=== PATIENT | female | born 1970 | race Caucasian/White ===

== ENCOUNTER → 2017-11-03 | Outpatient (CLI) | payer OTHER ==
[~2017-11-03] MED LIST: ACET500; ALBU90OI INH; ALPR.5 PO; AMIT25 PO; AMOX500 PO; AZIT500 PO; Adipex-P37.5 M1 PO; BISA10S PR; BISA5EC PO; BUPR100 PO; BUSP10 PO; BUTASPCAF PO; CARI350 PO; CEPH500 PO; CIPR500 PO; CLIN300 PO; CLOT1TC TOP; CODGUAEL PO; CYCL10 PO; Crutch1 EACH MISC; DIAZ5; DOCU100 PO; FAMO20 PO; FURO40; FURO40 PO; HYDACE10B PO; HYDACE5; HYDACE5 PO; HYDACE7.5 PO; HYDR1TAB94 PO; IBUP600; IBUP800 PO; Inderal60 MG PO; LOSA25 PO; METO25 PO; NAPR500 PO; NAPR550; NAPR550 PO; NEOCOLOTSU OT; NYSTRI30T TOP; ONDA4 PO; ONDA4ODT MM; OXYACE5T PO; PARO10; PENVK500 PO; PERM5TC TOP; POLY17UD PO; PRED5 PO; PROC10 PO; PROCODE120 PO; PROM25 PO; Prilosec20 MG PO; RANI150 PO; RXNAPNA550 PO; RXPROM25 PO; RXTRAM50 PO; SUCR1 PO; TRAM50 PO; Ultram50 MG PO
[2017-11-03 16:56] LABS: BASOPHILS ABSOLUTE AUTO 0.08 K/mm3 (0.00-0.23); BASOPHILS PERCENT AUTO 1 % (0-2); EOSINOPHILS ABSOLUTE AUTO 0.45 K/mm3 (0.00-0.68); EOSINOPHILS PERCENT AUTO 4 % (0-6); Hemoglobin 13.9 g/dL (11.5-16.0); IMMATURE GRAN ABSOLUTE AUTO 0.03 K/mm3 (0.00-0.10); IMMATURE GRAN PERCENT AUTO 0 % (0-1); LYMPHOCYTES ABSOLUTE AUTO 3.19 K/mm3 (0.84-5.20); LYMPHOCYTES PERCENT AUTO 31 % (21-46); MONOCYTES ABSOLUTE AUTO 0.61 K/mm3 (0.16-1.47); MONOCYTES PERCENT AUTO 6 % (4-13); Mean Corpuscular HGB Conc 33.1 g/dL (31.5-36.5); Mean Corpuscular Volume 88 fL (80-100); Mean Platelet Volume 11.1 fL (9.1-12.4); NEUTROPHILS ABSOLUTE AUTO 5.82 K/mm3 (1.96-9.15); NEUTROPHILS PERCENT AUTO 57 % (41-73); Platelet Count 323 K/mm3 (150-400); RDW Coefficient Variation 13.1 % (11.7-14.2); Red Blood Cell Count 4.79 M/mm3 (3.80-5.20); White Blood Cell Count 10.18 K/mm3 (4.00-11.30)
[2017-11-03 17:16] LABS: Anion Gap 9 mmol/L (6-16); Blood Urea Nitrogen 14 mg/dL (8-24); Bun/Creatinine Ratio 17.1 (12.0-20.0); CO2, Blood 29 mmol/L (21-32); Calcium, Blood 9.3 mg/dL (8.5-10.1); Chloride, Blood 104 mmol/L (98-108); Creatinine, Blood 0.82 mg/dL (0.40-1.00); Glomerular Filtration Rate >60 (60-); Glucose, Blood 126 mg/dL (70-99); Potassium, Blood 3.6 mmol/L (3.5-5.5); Sodium, Blood 142 mmol/L (136-145); Thyroid Stimulating Hormone 3.246 uIU/mL (0.360-4.800)
[2017-11-03 17:17] LABS: Troponin I <0.017 ng/mL (0.000-0.040)
== END ==
LOC: LAB EV 16:49
PROVIDERS: Family Medicine
DX: R00.2 Palpitations (principal)
CPT/HCPCS: 80048; 84443; 84484; 85025

== ENCOUNTER → 2018-01-27 | Outpatient (CLI) | payer OTHER | END | disposition home or self-care (01) | LOC: LAB EV 09:32 → LAB SHORT 09:32 | DX: J02.9 Acute pharyngitis, unspecified (principal) | CPT/HCPCS: 87070 ==

== ENCOUNTER 2018-12-15 12:28 | Emergency (ER) | payer OTHER ==
[~2018-12-15] VITALS: Ht 170.2 cm; Wt 123.8 kg
[~2018-12-15 12:28] MED LIST changes: -Protonix40 MG PO
[2018-12-15] MEDS ORDERED: Protonix40 MG PO (15:56)
== END 2018-12-15 16:10 | disposition home or self-care (01) ==
LOC: ER 12:28
DX: K29.70 Gastritis, unspecified, without bleeding (principal); K29.80 Duodenitis without bleeding; K27.9 Peptic ulcer, site unspecified, unspecified as acute or chronic, without hemorrhage or perforation; Z79.899 Other long term (current) drug therapy; I10 Essential (primary) hypertension
CPT/HCPCS: 36415; 74176; 86850; 86900; 86901; 96374; 99284-25; J0780

== ENCOUNTER → 2018-12-15 | Outpatient (CLI) | payer OTHER ==
[~2018-12-15] MED LIST changes: +Protonix40 MG PO
[2018-12-15 12:19] LABS: BASOPHILS ABSOLUTE AUTO 0.07 K/mm3 (0.00-0.23); BASOPHILS PERCENT AUTO 1 % (0-2); EOSINOPHILS ABSOLUTE AUTO 0.28 K/mm3 (0.00-0.68); EOSINOPHILS PERCENT AUTO 3 % (0-6); Hemoglobin 13.2 g/dL (11.5-16.0); IMMATURE GRAN ABSOLUTE AUTO 0.01 K/mm3 (0.00-0.10); IMMATURE GRAN PERCENT AUTO 0 % (0-1); LYMPHOCYTES ABSOLUTE AUTO 3.04 K/mm3 (0.84-5.20); LYMPHOCYTES PERCENT AUTO 36 % (21-46); MONOCYTES ABSOLUTE AUTO 0.53 K/mm3 (0.16-1.47); MONOCYTES PERCENT AUTO 6 % (4-13); Mean Corpuscular HGB 28.4 pg (26.0-34.0); Mean Corpuscular Volume 86 fL (80-100); Mean Platelet Volume 11.1 fL (9.1-12.4); NEUTROPHILS ABSOLUTE AUTO 4.64 K/mm3 (1.96-9.15); NEUTROPHILS PERCENT AUTO 54 % (41-73); Platelet Count 298 K/mm3 (150-400); RDW Coefficient Variation 13.1 % (11.7-14.2); RDW Standard Deviation 40.5 fL (35.1-46.3); Red Blood Cell Count 4.65 M/mm3 (3.80-5.20); White Blood Cell Count 8.57 K/mm3 (4.00-11.30)
[2018-12-15 12:29] LABS: Albumin, Blood 4.3 g/dL (3.4-5.0); Albumin/Globulin Ratio 1.3 (0.8-1.8); Bilirubin, Total 0.3 mg/dL (0.1-1.0); Bun/Creatinine Ratio 20.4 (12.0-20.0); Calcium, Blood 9.3 mg/dL (8.5-10.1); Creatinine, Blood 1.03 mg/dL (0.40-1.00); Globulin, Blood 3.3 g/dL (2.2-4.0); Potassium, Blood 4.1 mmol/L (3.5-5.5); Total Protein, Blood 7.6 g/dL (6.4-8.2)
[2018-12-15 13:08] LABS: International Normalized Ratio 0.93; Prothrombin Time Results 9.7 Sec (9.7-11.5)
== END | disposition home or self-care (01) ==
LOC: LAB SHORT 12:10 → LAB EV 12:10
PROVIDERS: General Practice
DX: K62.5 Hemorrhage of anus and rectum (principal); R10.9 Unspecified abdominal pain
CPT/HCPCS: 80053; 83690; 85025; 85610; 85730

== ENCOUNTER → 2019-07-25 | Outpatient (CLI) | payer OTHER ==
[~2019-07-25] MED LIST changes: -Inderal60 MG PO; +LOSARTAN POTAS100 MG PO; +OMEP20ER; +OMEPRAZOLE MAGN20 M1 PO; +Oxybutynin Chlo15 MG; +PRAM.125; +PRAM.125 PO; +PROBIOTIC1 EAC4 PO; +PROM25; +PROP120ER PO; +Protonix40 MG PO; +TRAM50; +TRAZ50; +TRAZ50 PO
== END | disposition home or self-care (01) ==
LOC: LAB SHORT 08:11 → OLS 08:11 → LAB FUT 07-10 09:30
DX: R11.2 Nausea with vomiting, unspecified (principal); R10.13 Epigastric pain
CPT/HCPCS: 87338

== ENCOUNTER 2019-07-30 07:38 | Day surgery (SDC) | payer OTHER ==
[~2019-07-30] VITALS: Ht 170.2 cm; Wt 119.5 kg
[~2019-07-30 07:38] MED LIST changes: -LOSARTAN POTAS100 MG PO; -OMEPRAZOLE MAGN20 M1 PO; -PROBIOTIC1 EAC4 PO; -TRAZ50 PO
== END 2019-07-30 10:14 | disposition home or self-care (01) ==
LOC: ORSCSDS 07:38
PROVIDERS: Internal Medicine Gastroenterology
PROC: 0DJD8ZZ Inspection of Lower Intestinal Tract, Via Natural or Artificial Opening Endoscopic (ICD-10-PCS; principal; 2019-07-30 09:00)
PROC: 0DB68ZX Excision of Stomach, Via Natural or Artificial Opening Endoscopic, Diagnostic (ICD-10-PCS; principal; 2019-07-30 09:00)
PROC: 0DB58ZX Excision of Esophagus, Via Natural or Artificial Opening Endoscopic, Diagnostic (ICD-10-PCS; principal; 2019-07-30 09:00)
DX: K21.9 Gastro-esophageal reflux disease without esophagitis (principal); R11.2 Nausea with vomiting, unspecified; R10.13 Epigastric pain; K62.5 Hemorrhage of anus and rectum; K64.8 Other hemorrhoids; K29.70 Gastritis, unspecified, without bleeding; K29.80 Duodenitis without bleeding
CPT/HCPCS: 87081; 88305; J0330; J0461; J2405; J2704; J7120

== ENCOUNTER 2019-08-30 14:45 | Emergency (ER) | payer OTHER ==
[~2019-08-30] VITALS: Ht 170.2 cm; Wt 122.0 kg
[2019-08-30 15:21] LABS: BASOPHILS ABSOLUTE AUTO 0.05 K/mm3 (0.00-0.23); BASOPHILS PERCENT AUTO 1 % (0-2); EOSINOPHILS PERCENT AUTO 3 % (0-6); Hematocrit 37.3 % (33.0-51.0); Hemoglobin 11.9 g/dL (11.5-16.0); IMMATURE GRAN ABSOLUTE AUTO 0.01 K/mm3 (0.00-0.10); IMMATURE GRAN PERCENT AUTO 0 % (0-1); LYMPHOCYTES ABSOLUTE AUTO 2.58 K/mm3 (0.84-5.20); LYMPHOCYTES PERCENT AUTO 39 % (21-46); MONOCYTES PERCENT AUTO 11 % (4-13); Mean Corpuscular HGB 26.8 pg (26.0-34.0); Mean Corpuscular HGB Conc 31.9 g/dL (31.5-36.5); Mean Corpuscular Volume 84 fL (80-100); Mean Platelet Volume 10.9 fL (9.1-12.4); NEUTROPHILS PERCENT AUTO 46 % (41-73); Platelet Count 258 K/mm3 (150-400); RDW Coefficient Variation 12.3 % (11.7-14.2); RDW Standard Deviation 36.9 fL (35.1-46.3); Red Blood Cell Count 4.44 M/mm3 (3.80-5.20); White Blood Cell Count 6.54 K/mm3 (4.00-11.30)
[2019-08-30 15:44] LABS: Alanine Aminotransfer (ALT/SGP 62 U/L (12-78); Albumin, Blood 3.7 g/dL (3.4-5.0); Albumin/Globulin Ratio 1.2 (0.8-1.8); Alk Phos 120 U/L (50-136); Anion Gap 6 mmol/L (6-16); Aspartate Aminotrans (AST/SGOT 29 U/L (12-37); Bilirubin, Total 0.4 mg/dL (0.1-1.0); Blood Urea Nitrogen 10 mg/dL (8-24); Bun/Creatinine Ratio 26.2 (12.0-20.0); CO2, Blood 27 mmol/L (21-32); Calcium, Blood 9.7 mg/dL (8.5-10.1); Chloride, Blood 107 mmol/L (98-108); Creatinine, Blood 0.38 mg/dL (0.40-1.00); Globulin, Blood 3.1 g/dL (2.2-4.0); Glomerular Filtration Rate >60 (60-); Glucose, Blood 109 mg/dL (70-99); Potassium, Blood 3.5 mmol/L (3.5-5.5); Sodium, Blood 140 mmol/L (136-145); Total Protein, Blood 6.8 g/dL (6.4-8.2); Troponin I <0.015 ng/mL (0.000-0.040)
[2019-08-30] MEDS ORDERED: LOSARTAN POTAS100 MG PO (16:28)
[2019-08-30 16:29] LABS: Source, Urine Clean Catch
[2019-08-30] MEDS ORDERED: TRAZ50 PO (16:29)
[2019-08-30] MEDS ORDERED: OMEPRAZOLE MAGN20 M1 PO (16:30)
[2019-08-30] MEDS ORDERED: PROBIOTIC1 EAC4 PO (16:31)
[2019-08-30] MEDS ORDERED: HYDR1TAB94 PO (16:31)
[2019-08-30 16:40] LABS: Bilirubin, Urine Neg (Neg); Blood, Urine Neg (Neg); Glucose Qualitative, Urine Neg (Neg); Ketones, Urine Neg (Neg); Leukocyte Esterase, Urine Neg (Neg); Nitrite, Urine Neg (Neg); Protein, Urine Neg (Neg); Urobilinogen, Urine NORM (Normal)
[2019-08-30 16:48] LABS: Appearance, Urine Clear (Clear); Color, Urine Yellow (P-Yellow)
== END 2019-08-30 19:51 | disposition home or self-care (01) ==
LOC: ER 14:45
PROVIDERS: Emergency Medicine
DX: R07.9 Chest pain, unspecified (principal); R00.0 Tachycardia, unspecified; I10 Essential (primary) hypertension; Z79.899 Other long term (current) drug therapy; Z87.891 Personal history of nicotine dependence; R01.1 Cardiac murmur, unspecified; R06.02 Shortness of breath; R60.0 Localized edema
CPT/HCPCS: 71046; 71260; 80053; 81003; 81025; 83880; 84484; 85025; 85379; 93005; 93010; 99285-25; Q9967

== ENCOUNTER → 2019-09-13 | Outpatient (CLI) | payer OTHER ==
[~2019-09-13] MED LIST changes: +LOSARTAN POTAS100 MG PO; +OMEPRAZOLE MAGN20 M1 PO; +PROBIOTIC1 EAC4 PO; +TRAZ50 PO
[2019-09-13 14:01] LABS: Candida species (DNA Probe) Negative (NEGATIVE); G. vaginalis (DNA Probe) Positive (NEGATIVE); T. vaginalis (DNA Probe) Negative (NEGATIVE)
== END ==
LOC: LAB SHORT 10:38 → LAB UCHC 10:38
PROVIDERS: Registered Nurse Community Health
DX: N89.8 Other specified noninflammatory disorders of vagina (principal)
CPT/HCPCS: 87480; 87510; 87660

== ENCOUNTER → 2019-10-17 | Outpatient (CLI) | payer OTHER | LOC: LAB 12:27 → LAB SHORT 12:27 | DX: B37.2 Candidiasis of skin and nail (principal) | CPT/HCPCS: 87070; 87205 ==

== ENCOUNTER 2023-03-16 11:07 | Emergency (ER) | payer OTHER ==
[~2023-03-16] VITALS: Ht 170.2 cm; Wt 132.0 kg
[2023-03-16 11:59] LABS: BASOPHILS ABSOLUTE AUTO 0.12 K/mm3 (0.00-0.23); BASOPHILS PERCENT AUTO 1 % (0-2); EOSINOPHILS ABSOLUTE AUTO 0.34 K/mm3 (0.00-0.68); EOSINOPHILS PERCENT AUTO 3 % (0-6); Hematocrit 44.4 % (33.0-51.0); Hemoglobin 15.3 g/dL (11.5-16.0); IMMATURE GRAN ABSOLUTE AUTO 0.03 K/mm3 (0.00-0.10); IMMATURE GRAN PERCENT AUTO 0 % (0-1); LYMPHOCYTES ABSOLUTE AUTO 4.24 K/mm3 (0.84-5.20); LYMPHOCYTES PERCENT AUTO 41 % (21-46); MONOCYTES ABSOLUTE AUTO 0.63 K/mm3 (0.16-1.47); MONOCYTES PERCENT AUTO 6 % (4-13); Mean Corpuscular HGB 28.5 pg (26.0-34.0); Mean Corpuscular HGB Conc 34.5 g/dL (31.5-36.5); Mean Corpuscular Volume 83 fL (80-100); Mean Platelet Volume 11.1 fL (9.1-12.4); NEUTROPHILS ABSOLUTE AUTO 5.05 K/mm3 (1.96-9.15); NEUTROPHILS PERCENT AUTO 48 % (41-73); Platelet Count 378 K/mm3 (150-400); Red Blood Cell Count 5.36 M/mm3 (3.80-5.20); White Blood Cell Count 10.41 K/mm3 (4.00-11.30)
[2023-03-16] MEDS ORDERED: Adipex-P37.5 M1 PO (15:04)
[2023-03-16] MEDS ORDERED: ZANAFLEX413 PO (15:04)
[2023-03-16] MEDS ORDERED: VENL150ER PO (15:05)
[2023-03-16] MEDS ORDERED: LOSA50 PO (15:06)
[2023-03-16 15:25] LABS: Albumin, Blood 4.3 g/dL (3.4-5.0); Albumin/Globulin Ratio 1.1 (0.8-1.8); Bilirubin, Total 0.3 mg/dL (0.1-1.0); Calcium, Blood 9.9 mg/dL (8.5-10.1); Creatinine, Blood 0.75 mg/dL (0.40-1.00); Globulin, Blood 3.9 g/dL (2.2-4.0); Potassium, Blood 4.2 mmol/L (3.5-5.5); Total Protein, Blood 8.2 g/dL (6.4-8.2)
[2023-03-16] MEDS ORDERED: Robaxin750 MG PO (16:20)
[2023-03-16] MEDS ORDERED: METO10 PO (16:20)
[2023-03-16 16:40] VITALS: BP 200/100
== END 2023-03-16 16:41 | disposition home or self-care (01) ==
LOC: ER 11:07
PROVIDERS: Physician Assistant
DX: G44.209 Tension-type headache, unspecified, not intractable (principal); I10 Essential (primary) hypertension; M54.2 Cervicalgia; Z79.899 Other long term (current) drug therapy; Z87.891 Personal history of nicotine dependence
CPT/HCPCS: 80053; 85025; 93005; 93010; 96361; 96374; 96375; 99283-25; A9270; J1885; J2765; J7030

== ENCOUNTER 2023-03-28 14:25 | Inpatient (IN) | payer OTHER ==
[~2023-03-28] VITALS: Ht 167.6 cm; Wt 134.2 kg
[~2023-03-28 14:25] MED LIST changes: +LOSA50 PO; +METO10 PO; +Robaxin750 MG PO; +VENL150ER PO; +ZANAFLEX413 PO
[2023-03-28 15:39] LABS: BASOPHILS ABSOLUTE AUTO 0.08 K/mm3 (0.00-0.23); BASOPHILS PERCENT AUTO 1 % (0-2); EOSINOPHILS ABSOLUTE AUTO 0.32 K/mm3 (0.00-0.68); EOSINOPHILS PERCENT AUTO 3 % (0-6); Hemoglobin 15.4 g/dL (11.5-16.0); Mean Corpuscular HGB 28.5 pg (26.0-34.0); Mean Corpuscular HGB Conc 34.2 g/dL (31.5-36.5); Mean Corpuscular Volume 83 fL (80-100); Platelet Count 377 K/mm3 (150-400); RDW Coefficient Variation 12.9 % (11.7-14.2); RDW Standard Deviation 38.9 fL (35.1-46.3); Red Blood Cell Count 5.41 M/mm3 (3.80-5.20); White Blood Cell Count 10.41 K/mm3 (4.00-11.30)
[2023-03-28 15:43] LABS: IMMATURE GRAN ABSOLUTE AUTO 0.02 K/mm3 (0.00-0.10); IMMATURE GRAN PERCENT AUTO 0 % (0-1); LYMPHOCYTES ABSOLUTE AUTO 4.57 K/mm3 (0.84-5.20); LYMPHOCYTES PERCENT AUTO 44 % (21-46); MONOCYTES ABSOLUTE AUTO 0.75 K/mm3 (0.16-1.47); MONOCYTES PERCENT AUTO 7 % (4-13); NEUTROPHILS ABSOLUTE AUTO 4.67 K/mm3 (1.96-9.15); NEUTROPHILS PERCENT AUTO 45 % (41-73)
[2023-03-28 16:08] LABS: Albumin, Blood 4.3 g/dL (3.4-5.0); Albumin/Globulin Ratio 1.1 (0.8-1.8); Bilirubin, Total 0.3 mg/dL (0.1-1.0); Bun/Creatinine Ratio 26.2 (12.0-20.0); Calcium, Blood 10.1 mg/dL (8.5-10.1); Creatinine, Blood 0.69 mg/dL (0.40-1.00); Potassium, Blood 3.8 mmol/L (3.5-5.5); Total Protein, Blood 8.3 g/dL (6.4-8.2)
[2023-03-28 19:38] LABS: Source, Urine Clean Catch
[2023-03-28 19:41] LABS: Appearance, Urine Clear (Clear); Bilirubin, Urine Neg (Neg); Blood, Urine Neg (Neg); Color, Urine Yellow (P-Yellow); Glucose Qualitative, Urine Neg (Neg); Ketones, Urine Neg (Neg); Leukocyte Esterase, Urine Neg (Neg); Nitrite, Urine Neg (Neg); Protein, Urine 1+ (Neg); Urobilinogen, Urine NORM (Normal)
[2023-03-28 23:21] VITALS: BP 203/115
[2023-03-28 23:36] LABS: Glucose, Body Fluid 81 mg/dL; Protein, Body Fluid 0.1 g/dL
[2023-03-28 23:52] LABS: RBC Count, CSF 0 /mm3 (0-0)
[2023-03-28 23:58] LABS: Automated CSF WBC Count 0.001 K/mm3 (0-5)
[2023-03-29] VITALS (7 sets, daily range): BP systolic 131–221; BP diastolic 84–117
[2023-03-29 00:09] LABS: WBC Count, CSF 3 /mm3 (0-5)
[2023-03-29 00:10] LABS: RBC Count, CSF 14 /mm3 (0-0)
[2023-03-29 00:11] LABS: Appearance, CSF Clear (Clear); Color, CSF No Color (No Color)
--- NOTE | 2023-03-29 00:28 | NUR ---
ARRIVAL TO [facility] / SAFETY & EDUCATION PT ARRIVED TO [facility] AT APPROXIMATELY 2315. PT TRANSFERED FROM [facility] TO [facility] BED WITH SBA. PT AMBUALTED TO BATHROOM ONCE ARRIVING TO ROOM. PT A&Ox4, COMMUNICATES NEEDS APPRPOPRIATELY, ORIENTED TO CALL LIGHT/UNIT. BP ELEVATED, PERMISSIVE HTN PER PHYSICIAN, MANAGING PER EMAR. SINUS 80's, DENIES CP/PRESSURE. SpO2> 92% RA, DENIES SOB. PT WITH C/O OF HEADACHE, MEDICATED PER EMAR, APPLIED COOL WASH CLOTHS. BED IN LOWEST POSITION, CALL LIGHT IN REACH. PT & FAMILY EDUCATED RE: IGNITION SOURCES AND RISK OF INJURY WHILE OXYGEN IS IN USE. PT DENIES SMOKING AND PT & FAMILY VERBALIZE UNDERSTANDING.
[2023-03-29 00:48] LABS: Cryptococcus Neoformans/Gattii Not Detected (NOT DETECT); Enterovirus Not Detected (NOT DETECT); Escherichia Coli K1 Not Detected (NOT DETECT); Haemophilus Influenza Not Detected (NOT DETECT); Herpes Simplex Virus 1 Not Detected (NOT DETECT); Herpes Simplex Virus 2 Not Detected (NOT DETECT); Human Herpesvirus 6 Not Detected (NOT DETECT); Human Parechovirus Not Detected (NOT DETECT); Listeria Monocytogenes Not Detected (NOT DETECT); Neisseria Meningitidis Not Detected (NOT DETECT); Streptococcus Agalactiae Not Detected (NOT DETECT); Streptococcus Pneumoniae Not Detected (NOT DETECT); Varicella Zoster Virus Not Detected (NOT DETECT)
[2023-03-29 00:54] LABS: Appearance, CSF Clear (Clear); Color, CSF No Color (No Color)
[2023-03-29 04:58] LABS: BASOPHILS ABSOLUTE AUTO 0.12 K/mm3 (0.00-0.23); BASOPHILS PERCENT AUTO 1 % (0-2); EOSINOPHILS ABSOLUTE AUTO 0.05 K/mm3 (0.00-0.68); EOSINOPHILS PERCENT AUTO 0 % (0-6); Hemoglobin 14.8 g/dL (11.5-16.0); IMMATURE GRAN ABSOLUTE AUTO 0.07 K/mm3 (0.00-0.10); IMMATURE GRAN PERCENT AUTO 1 % (0-1); LYMPHOCYTES ABSOLUTE AUTO 3.47 K/mm3 (0.84-5.20); LYMPHOCYTES PERCENT AUTO 23 % (21-46); MONOCYTES ABSOLUTE AUTO 0.72 K/mm3 (0.16-1.47); MONOCYTES PERCENT AUTO 5 % (4-13); Mean Corpuscular HGB 28.5 pg (26.0-34.0); Mean Corpuscular HGB Conc 33.6 g/dL (31.5-36.5); Mean Corpuscular Volume 85 fL (80-100); Mean Platelet Volume 11.1 fL (9.1-12.4); NEUTROPHILS ABSOLUTE AUTO 10.92 K/mm3 (1.96-9.15); NEUTROPHILS PERCENT AUTO 71 % (41-73); Platelet Count 317 K/mm3 (150-400); RDW Standard Deviation 40.1 fL (35.1-46.3); White Blood Cell Count 15.35 K/mm3 (4.00-11.30)
--- NOTE | 2023-03-29 05:02 | NUR ---
SHIFT SUMMARY SEE PREVIOUS NOTE. PT A&Ox4, CALLS AND COMMUNICATES NEEDS APPROPRIATELY. BP ELEVATED WITH SBP 150-160's, PERMISSIVE HTN PER PHYSICIAN. SR-ST 80-100's, DENIES CP/PRESSURE. SpO2> 92% RA, DENIES SOB. PT SBA TO BATHROOM, CONTINENT OF URINE, NO BM THIS SHIF. PT WITH C/O HEADACHE, MEDICATED PER EMAR. PT NPO. NO PTHER EVENTS, WILL REPORT TO ONCOMING RN.
[2023-03-29 06:35] LABS: Albumin, Blood 4.3 g/dL (3.4-5.0); Albumin/Globulin Ratio 1.2 (0.8-1.8); Bilirubin, Total 0.4 mg/dL (0.1-1.0); Bun/Creatinine Ratio 27.1 (12.0-20.0); Calcium, Blood 9.8 mg/dL (8.5-10.1); Creatinine, Blood 0.67 mg/dL (0.40-1.00); Globulin, Blood 3.7 g/dL (2.2-4.0); Potassium, Blood 3.8 mmol/L (3.5-5.5)
[2023-03-29] MEDS ORDERED: AMLO5 PO (17:58)
[2023-03-29] MEDS ORDERED: CHLO25B PO (17:59)
--- NOTE | 2023-03-29 18:10 | NUR ---
END OF SHIFT PT A&O X4. VSS. SPO2 > 92% ON RA. MONITOR SHOWING SR-ST, HR 80s-110. BP ELEVATED. PRN LABETALOL GIVEN PER EMAR X2 THIS SHIFT W/ IMPROVEMENT. PT C/O HEADACHE T/O SHIFT. PT ALTERNATING BETWEEN PRN IV DILAUDID, GIVEN X2 PER EMAR THIS SHIFT, & PRN PO ROXICODONE X1 THIS SHIFT. PT REPORTING LITTLE TO NO IMPROVEMENT IN PAIN. PT USING FAN & COOL WASH CLOTH. ECHO DONE THIS SHIFT. CAROTID DUPLEX DONE THIS SHIFT. MRI DONE THIS SHIFT. MD AKHTAR TO BEDSIDE THIS EVENING TO SHARE RESULTS W/ PT. PT W/ FAMILY IN RM T/O DAY. PT TIRED, REQUESTING BREAK FROM VISITORS.
[2023-03-30 03:45] VITALS: BP 128/70
--- NOTE | 2023-03-30 04:35 | NUR ---
SHIFT SUMMARY THIS RN ASSUMED CARE OF PATIENT AT 1900. PT CONTINUES TO REPORT A CONSTANT HEADACHE, REPORTING 6-10/10 DURING THIS SHIFT. MEDICATED PER EMAR. PT APPEARED TO GET SOME SLEEP DURING THIS SHIFT AFTER IV PAIN MEDICATION ADMINISTRATION. BP STABLE, SBP 140'S AT THIS TIME. SR ON MONITOR. SPO2 >92% ON RA. AFEBRILE. PT SBA/IND WITH ADL'S. CALLING APPROPRIATELY. NONPHARMACOLOGIC PAIN RELIEF MEASURES IN PLACE. MEDICATED FOR NAUSEA X1 DURING THIS SHIFT. Q4HR NEURO CHECKS DONE. CONTINUES TO HAVE SLIGHT WEAKNESS IN LEFT ARM/LEG; NO OTHER CHANGES NOTED. BED IN LOWEST POSITION AND CALL LIGHT WITHIN REACH. THIS RN WILL CONTINUE TO MONITOR UNTIL SHIFT CHANGE AT 0700.
[2023-03-30 07:53] LABS: Hemoglobin 13.8 g/dL (11.5-16.0); Mean Corpuscular HGB 28.5 pg (26.0-34.0); Mean Corpuscular HGB Conc 33.7 g/dL (31.5-36.5); Mean Corpuscular Volume 85 fL (80-100); Platelet Count 330 K/mm3 (150-400); RDW Standard Deviation 39.8 fL (35.1-46.3); Red Blood Cell Count 4.85 M/mm3 (3.80-5.20); White Blood Cell Count 10.28 K/mm3 (4.00-11.30)
[2023-03-30 08:07] VITALS: BP 154/95
[2023-03-30 08:12] LABS: Albumin, Blood 3.9 g/dL (3.4-5.0); Albumin/Globulin Ratio 1.1 (0.8-1.8); Bilirubin, Total 0.5 mg/dL (0.1-1.0); Bun/Creatinine Ratio 24.3 (12.0-20.0); Calcium, Blood 9.4 mg/dL (8.5-10.1); Creatinine, Blood 0.7 mg/dL (0.40-1.00); Globulin, Blood 3.4 g/dL (2.2-4.0); Potassium, Blood 3.1 mmol/L (3.5-5.5); Total Protein, Blood 7.3 g/dL (6.4-8.2)
[2023-03-30 11:07] VITALS: BP 155/88
[2023-03-30] MEDS ORDERED: ASPI81CH PO (12:05)
[2023-03-30] MEDS ORDERED: HYDR10 PO (12:05)
[2023-03-30] MEDS ORDERED: Percocet 5-3251 EACH PO (12:06)
--- NOTE | 2023-03-30 12:42 | NUR ---
DISCHARGE HOME PT A&O X4. VSS. SPO2 > 92% ON RA. MONITOR SHOWING SR PRIOR TO TELEMETRY REMOVAL. PT W/ CONTINUED REPORT OF HEADACHE, MANAGING PER EMAR. PT ALSO W/ NAUSEA, MANAGING PER EMAR WELL. PT REPORTING READINESS TO GO HOME DESPITE NAUSEA & PAIN. MD AKHTAR W/ ORDER FOR DISCHARGE HOME. DISCHARGE INSTRUCTIONS REVIEWED W/ PT & SENT HOME W/ PT. PIV REMOVED. PT TAKEN OUT BY PCT IN WHEELCHAIR W/ BELONGINGS & FAMILY @ APPROX 1230.
--- NOTE | 2023-03-30 12:52 | NUR ---
FIRE IGNITION RISK ASSESSMENT/EDUCATION COMPLETE
== END 2023-03-30 12:30 | disposition home or self-care (01) | DRG 305 ==
LOC: ER 14:25 → PCU 14:26
PROVIDERS: Family Medicine; Internal Medicine; Student in an Organized Health Care Education/Training Program; ADMIT Student in an Organized Health Care Education/Training Program
PROC: 009U3ZZ Drainage of Spinal Canal, Percutaneous Approach (ICD-10-PCS; principal; 2023-03-28)
DX: I16.1 Hypertensive emergency (principal); E86.0 Dehydration; E87.6 Hypokalemia; R74.01 Elevation of levels of liver transaminase levels; I16.0 Hypertensive urgency; I10 Essential (primary) hypertension; M50.33 Other cervical disc degeneration, cervicothoracic region; G43.909 Migraine, unspecified, not intractable, without status migrainosus; G25.81 Restless legs syndrome; Z79.899 Other long term (current) drug therapy; Z90.710 Acquired absence of both cervix and uterus; Z90.721 Acquired absence of ovaries, unilateral; Z90.89 Acquired absence of other organs; Z98.890 Other specified postprocedural states; Z87.891 Personal history of nicotine dependence
CPT/HCPCS: 36415; 70496; 70551; 71046; 72141; 80053; 82945; 84157; 84484; 85025; 85027; 87483; 89051; 93005; 93010; 93306; 93880; 96374-59; 96375-59; 99285-25; A9270; J1170; J1200; J1650; J2765; J3010; J7120; Q9967

== ENCOUNTER → 2025-04-22 | Outpatient (CLI) | payer OTHER ==
[~2025-04-22] MED LIST changes: +AMLO5 PO; +ASPI81CH PO; +CHLO25B PO; +HYDR10 PO; +Percocet 5-3251 EACH PO
== END | disposition home or self-care (01) ==
LOC: LAB SHORT 07:00 → LAB 07:00
DX: I1A.0 Resistant hypertension (principal)
CPT/HCPCS: 81050